=== PATIENT | female | born 1985 | race Hispanic/Latino ===

== ENCOUNTER 2018-10-02 13:29 | Outpatient (CLI) | payer BC | END 2018-10-02 13:30 | disposition home or self-care (01) | LOC: DTY/OP 13:29 | PROVIDERS: ATTEND Family Medicine | DX: R63.5 Abnormal weight gain (principal) | CPT/HCPCS: 97802 ==

== ENCOUNTER 2019-05-29 14:39 | Outpatient (CLI) | payer BC | END 2019-05-29 14:40 | disposition home or self-care (01) | LOC: DTY/OP 14:39 | PROVIDERS: ATTEND Specialist | DX: E66.01 Morbid (severe) obesity due to excess calories (principal) | CPT/HCPCS: 97802 ==

== ENCOUNTER 2019-07-03 14:23 | Outpatient (CLI) | payer BC | END 2019-07-03 14:24 | disposition home or self-care (01) | LOC: DTY/OP 14:23 | PROVIDERS: ATTEND Family Medicine | DX: E66.01 Morbid (severe) obesity due to excess calories (principal) | CPT/HCPCS: 97802 ==

== ENCOUNTER 2019-08-03 14:32 | Outpatient (CLI) | payer BC | END 2019-08-03 14:33 | disposition home or self-care (01) | LOC: DTY/OP 14:32 | PROVIDERS: ATTEND Surgery | DX: E66.01 Morbid (severe) obesity due to excess calories (principal) | CPT/HCPCS: 97802 ==

== ENCOUNTER 2019-09-07 12:56 | Outpatient (CLI) | payer BC | END 2019-09-07 12:57 | disposition home or self-care (01) | LOC: DTY/OP 12:56 | PROVIDERS: ATTEND Surgery | DX: E66.01 Morbid (severe) obesity due to excess calories (principal) | CPT/HCPCS: 97802 ==

== ENCOUNTER 2019-10-02 09:04 | Outpatient (CLI) | payer BC | END 2019-10-02 09:05 | disposition home or self-care (01) | LOC: DTY/OP 09:04 | PROVIDERS: ATTEND Family Medicine | DX: E66.01 Morbid (severe) obesity due to excess calories (principal) | CPT/HCPCS: 97802 ==

== ENCOUNTER 2019-10-26 08:51 | Outpatient (CLI) | payer BC | END 2019-10-26 08:52 | disposition home or self-care (01) | LOC: DTY/OP 08:51 | PROVIDERS: ATTEND Family Medicine | DX: E66.01 Morbid (severe) obesity due to excess calories (principal) | CPT/HCPCS: 97802 ==

== ENCOUNTER 2024-07-22 13:09 | Outpatient (CLI) | payer BC | END 2024-07-22 13:10 | disposition home or self-care (01) | LOC: BICRAD 13:09 | PROVIDERS: ATTEND Family Medicine | DX: R14.1 Gas pain (principal); R19.8 Other specified symptoms and signs involving the digestive system and abdomen | CPT/HCPCS: 74019 ==